=== PATIENT | female | born 1990 | race Two or more races ===

== ENCOUNTER 2017-12-07 19:58 | Emergency (ER) | payer OTHER ==
[~2017-12-07] VITALS: Ht 172.7 cm; Wt 73.9 kg
[~2017-12-07 19:58] MED LIST: MACROBID100 MG ORAL
[2017-12-07] MEDS ORDERED: NKM (20:12)
--- NOTE | 2017-12-07 20:24 | Emergency Room Report ---
History of Present Illness General Chief Complaint: Sore Throat Source: Patient Present Illness HPI Patient is a 23-year-old female who presents today with complaints of sore throat that began 2 days ago. She notes associated fever, last dose of Tylenol was 3 hours prior to arrival and patient afebrile upon arrival. She states that several divert and her family are sick with the same symptoms. Denies cough, hoarseness or associated symptoms. She denies tobacco, alcohol or drug use. Allergies: Coded Allergies: No Known Allergies (Unverified , 05/31/15) Patient History Last Menstrual Period: 11/25/17 Now: No Reviewed Nursing Documentation: PMH: Agreed; PSxH: Agreed Nursing Documentation-PMH Past Medical History: No History, Except For Review of Systems ENT: Reports: throat pain All Other Systems: negative except mentioned in HPI Physical Exam Vital Signs Date Time Temp Pulse Resp B/P (MAP) Pulse Ox O2 Delivery O2 Flow Rate FiO2 12/07/17 20:08 98.3 82 16 130/78 97 98.2 Sp02 EP Interpretation: reviewed, normal General Appearance: no apparent distress, alert, GCS 15, non-toxic Head: normocephalic, atraumatic Eyes: bilateral eye normal inspection, bilateral eye PERRL ENT: hearing grossly normal, normal pharynx, no angioedema, normal voice, other - Tonsils are 3+ colla beefy red with exudates on the right. Uvula is midline. No peritonsillar abscess or Baljinder angina. Neck: full range of motion, supple/symm/no masses Respiratory: chest non-tender, lungs clear, normal breath sounds, speaking full sentences Cardiovascular #1: regular rate, rhythm, no edema Cardiovascular #2: 2+ carotid (R), 2+ carotid (L), 2+ radial (R), 2+ radial (L) , 2+ dorsalis pedis (R), 2+ dorsalis pedis (L) Gastrointestinal: normal bowel sounds, non tender, soft, non-distended, no guarding, no rebound Rectal: deferred Genitourinary: normal inspection, no CVA tenderness Musculoskeletal: back normal, gait/station normal, normal range of motion, non- tender, calf tenderness Neurologic: alert, oriented x3, responsive, motor strength/tone normal, sensory intact, speech normal Psychiatric: judgement/insight normal, memory normal, mood/affect normal, no suicidal/homicidal ideation Reflexes: 3+ bicep (R), 3+ bicep (L), 3+ tricep (R), 3+ tricep (L), 3+ knee (R) , 3+ knee (L) Skin: normal color, no rash, warm/dry, well hydrated Lymphatic: no adenopathy Medical Decision Making PA Attestation Supervising physician is Dr. Phelps Reaction to Intervention: Improved Diagnostic Impression: Primary Impression: Acute tonsillitis ER Course Patient sound tonsillitis on physical exam, no evidence of peritonsillar abscess or Baljinder's angina. She is discharged home with penicillin and instructed to follow up with PCP for further evaluation and management. Patient understands and is agreeable with plan. Last Vital Signs Date Time Temp Pulse Resp B/P (MAP) Pulse Ox O2 Delivery O2 Flow Rate FiO2 12/07/17 20:08 98.3 82 16 130/78 97 98.2 Status: improved Disposition: HOME, SELF-CARE Condition: Stable Scripts Penicillin V Potassium* (PENVK*) 500 Mg Tablet 500 MG PO Q6H for 10 Days, #40 TAB 0 Refills Prov: Estephania Roberts 12/07/17 Estephania Roberts Dec 07, 2017 20:24
[2017-12-07 20:26] VITALS: BP 130/78
[2017-12-07] MEDS ORDERED: PENICILLIN V P500 MG PO (20:29)
[2017-12-07 20:44] VITALS: BP 130/78
== END 2017-12-07 20:45 | disposition home or self-care (01) ==
LOC: EMR 20:28
DX: J03.90 Acute tonsillitis, unspecified (principal)
CPT/HCPCS: 99283